=== PATIENT | male | born 1965 | race Two or more races ===

== ENCOUNTER 2023-07-18 02:55 | Inpatient (IN) | payer MEDICARE, OTHER ==
[~2023-07-18] VITALS: Ht 182.9 cm; Wt 105.7 kg
[2023-07-18 03:27] LABS: BASOPHILS # (AUTO) 0.1 K/uL (0.0-0.2); BASOPHILS % (AUTO) 0.7 % (0.0-2.0); EOSINOPHILS # (AUTO) 0.1 K/uL (0.0-0.7); EOSINOPHILS % (AUTO) 1.3 % (0.0-6.0); HEMATOCRIT 43 % (39-51); HEMOGLOBIN 14.6 g/dL (13.5-17.5); LYMPHOCYTES # (AUTO) 0.7 K/uL (0.8-4.8); LYMPHOCYTES % (AUTO) 6.3 % (20.0-44.0); MEAN CORPUSCULAR HEMOGLOBIN 31 PG (26.0-33.0); MEAN CORPUSCULAR HGB CONC 34 g/dl (31.0-36.0); MEAN CORPUSCULAR VOLUME 93 fL (80-96); MONOCYTES # (AUTO) 0.5 K/uL (0.1-1.30); MONOCYTES % (AUTO) 4.5 % (2.0-12.0); NEUTROPHILS # (AUTO) 9.9 K/uL (1.8-8.9); NEUTROPHILS % (AUTO) 87.2 % (43.0-81.0); PLATELET COUNT (AUTO) 215 K/uL (150-450); RED BLOOD CELL COUNT(AUTO) 4.66 MIL/uL (4.5-6.0); RED CELL DISTRIBUTION WIDTH 13.3 % (11.5-15.0); WHITE BLOOD COUNT (AUTO) 11.3 K/uL (4.3-11.0)
[2023-07-18 03:34] LABS: CARBON DIOXIDE 27 mmol/L (21-32); CHLORIDE 102 mmol/L (98-107); CREATININE 1.6 mg/dL (0.6-1.3); GLUCOSE 132 mg/dL (74-106); POTASSIUM 3.5 mmol/L (3.5-5.1); SODIUM SERUM 136 mmol/L (136-145); UREA NITROGEN, BLOOD 10 mg/dL (7-18)
[2023-07-18] MEDS ORDERED: ENOXAPARIN SODIUM 100 MG/ML DISP.SYRIN SQ ONE ×2 (03:59→04:00)
[2023-07-18] MEDS ORDERED: MAGNESIUM HYDROXIDE 30 ML UDC PO PRN (04:30)
[2023-07-18] MEDS ORDERED: ACETAMINOPHEN 325 MG TABLET PO PRN (04:30)
[2023-07-18] MEDS ORDERED: Z GUARD REMEDY 4 OZ OINT TP PRN (04:30)
[2023-07-18] MEDS ORDERED: MORPHINE SULFATE INJ 2 MG/ML DISP.SYRIN IV PRN (04:30)
[2023-07-18] MEDS ORDERED: NITROGLYCERIN PACKET 1 GM PACKET ONE (05:50)
[2023-07-18] MEDS: NITROGLYCERIN PACKET 1 GM PACKET TOP SCH ×2 (06:00→16:54)
[2023-07-18] MEDS ORDERED: PANTOPRAZOLE 40 MG TABLET.DR PO ONE (08:24)
[2023-07-18] MEDS ORDERED: METOPROLOL TARTRATE 25 MG TABLET ONE (08:24)
[2023-07-18] MEDS: PANTOPRAZOLE 40 MG TABLET.DR PO SCH (08:24)
[2023-07-18] MEDS: METOPROLOL TARTRATE 25 MG TABLET PO SCH ×2 (08:27→21:28)
[2023-07-18] MEDS ORDERED: LITH300T PO (08:39)
[2023-07-18] MEDS ORDERED: CLON0.5T PO (08:39)
[2023-07-18] MEDS ORDERED: QUET25TA PO (08:39)
[2023-07-18] MEDS ORDERED: TAMS-12 PO (08:39)
[2023-07-18] MEDS ORDERED: DULO60CA45 PO (08:39)
[2023-07-18] MEDS ORDERED: IV NS 0.9% 1,000 ML BAG IV PRN (10:00)
[2023-07-18] MEDS ORDERED: QUETIAPINE FUMARATE 25 MG TABLET PO PRN (10:00)
[2023-07-18] MEDS: IV NS 0.9% 1,000 ML IV PRN (11:54)
[2023-07-18 12:00] VITALS: BP 151/108; TEMP 98.2; O2SAT 99
[2023-07-18 16:39] VITALS: BP 158/98; TEMP 98.1; O2SAT 98
[2023-07-18 20:30] LABS: PARTIAL THROMBOPLASTIN TIME 28.6 SEC (24.3-34.3); PROTHROMBIN TIME 10.6 SECS (9.2-11.1)
[2023-07-18] MEDS ORDERED: ENOXAPARIN SODIUM 100 MG/ML DISP.SYRIN SQ SCH (21:00)
[2023-07-18] MEDS: ATORVASTATIN 40 MG TABLET PO SCH (21:28)
[2023-07-18 22:00] VITALS: BP 164/112; TEMP 98.2; O2SAT 97
[2023-07-18] MEDS ORDERED: LITHIUM CARBONATE (300 MG CAP) 300 MG CAPSULE PO ONE (22:00)
[2023-07-18] MEDS ORDERED: DULOXETINE HCL 20 MG CAPSULE.DR PO ONE (22:00)
[2023-07-19] VITALS (18 sets, daily range): BP systolic 124–171; BP diastolic 91–117; TEMP 97.5–98.3; O2SAT 95–100
[2023-07-19] MEDS: clonazePAM 0.5 MG TABLET PO PRN ×2 (01:38→21:48)
[2023-07-19] MEDS: IV NS 0.9% 1,000 ML IV PRN (01:38)
[2023-07-19 04:44] LABS: BASOPHILS % (AUTO) 0.1 % (0.0-2.0); EOSINOPHILS # (AUTO) 0.1 K/uL (0.0-0.7); EOSINOPHILS % (AUTO) 0.6 % (0.0-6.0); HEMATOCRIT 45 % (39-51); HEMOGLOBIN 15.4 g/dL (13.5-17.5); LYMPHOCYTES # (AUTO) 1.6 K/uL (0.8-4.8); LYMPHOCYTES % (AUTO) 13.3 % (20.0-44.0); MEAN CORPUSCULAR HEMOGLOBIN 32 PG (26.0-33.0); MEAN CORPUSCULAR HGB CONC 34 g/dl (31.0-36.0); MEAN CORPUSCULAR VOLUME 92 fL (80-96); MONOCYTES % (AUTO) 8.5 % (2.0-12.0); NEUTROPHILS # (AUTO) 9.4 K/uL (1.8-8.9); NEUTROPHILS % (AUTO) 77.5 % (43.0-81.0); PLATELET COUNT (AUTO) 236 K/uL (150-450); RED BLOOD CELL COUNT(AUTO) 4.87 MIL/uL (4.5-6.0); RED CELL DISTRIBUTION WIDTH 13.3 % (11.5-15.0); WHITE BLOOD COUNT (AUTO) 12.1 K/uL (4.3-11.0)
[2023-07-19] MEDS: NITROGLYCERIN PACKET 1 GM PACKET TOP SCH ×2 (04:47→16:35)
[2023-07-19 04:54] LABS: CALCIUM, SERUM 9.4 mg/dL (8.5-10.1); CREATININE 1.3 mg/dL (0.6-1.3); MAGNESIUM 2.3 mg/dL (1.8-2.4); PHOSPHORUS 2.8 mg/dL (2.5-4.9); POTASSIUM 4.1 mmol/L (3.5-5.1)
[2023-07-19] MEDS ORDERED: hydrALAZINE HCL IV 20 MG VIAL IV PRN (05:00)
[2023-07-19 05:10] LABS: PARTIAL THROMBOPLASTIN TIME 28.7 SEC (24.3-34.3); PROTHROMBIN TIME 10.6 SECS (9.2-11.1)
[2023-07-19] MEDS: PANTOPRAZOLE 40 MG TABLET.DR PO SCH (07:30)
[2023-07-19] MEDS: ONDANSETRON HCL/PF 4 MG/2 ML VIAL IVP PRN ×2 (08:45→14:27)
[2023-07-19] MEDS: LITHIUM CARBONATE (300 MG CAP) 300 MG CAPSULE PO SCH ×2 (09:00→22:32)
[2023-07-19] MEDS: METOPROLOL TARTRATE 25 MG TABLET PO SCH ×2 (09:00→20:19)
[2023-07-19] MEDS ORDERED: ASPIRIN EC 81 MG TABLET.DR PO SCH (09:00)
[2023-07-19] MEDS: ASPIRIN EC 81 MG TABLET.DR PO SCH (09:00)
[2023-07-19] MEDS ORDERED: LORAZEPAM INJ 2 MG/ML VIAL IV PRN (09:00)
[2023-07-19] MEDS: DULOXETINE HCL 30 MG CAPSULE.DR PO SCH (09:00)
[2023-07-19] MEDS: TAMSULOSIN 0.4 MG CAP.SR.24H PO SCH (09:00)
[2023-07-19] MEDS ORDERED: IV NS 0.9% 1,000 ML ONE (11:08)
[2023-07-19] MEDS ORDERED: LIDOCAINE HCL/MPF 1% 30 ML VIAL IJ ONE (11:08)
[2023-07-19] MEDS ORDERED: NITROGLYCERIN IN 5 % DEXTROSE 250 ML IV ONE (11:08)
[2023-07-19] MEDS ORDERED: IODIXANOL 150 ML IV ONE (11:08)
[2023-07-19] MEDS ORDERED: IV SET PRIMARY PUMP SET 1 EA INFUS.SET MC ONE (11:09)
[2023-07-19] MEDS ORDERED: FENTANYL PF 100MCG/2ML AMPUL ONE (12:25)
[2023-07-19] MEDS ORDERED: MIDAZOLAM HCL 2 MG/2ML VIAL ONE (12:25)
[2023-07-19] MEDS ORDERED: HEPARIN SODIUM, PORCINE 5000 UNITS/1 ML VIAL ONE (12:32)
[2023-07-19] MEDS ORDERED: HEPARIN SODIUM, PORCINE 1,000 UNIT/ML VIAL ONE (12:32)
[2023-07-19] MEDS ORDERED: IODIXANOL 320MG/ML 50 ML IV ONE (12:33)
[2023-07-19] MEDS ORDERED: TICAGRELOR 90 MG TABLET PO ONE (12:48)
[2023-07-19] MEDS: TICAGRELOR 90 MG TABLET PO SCH (16:35)
[2023-07-19] MEDS ORDERED: TICAGRELOR 90 MG TABLET PO SCH (17:00)
[2023-07-19] MEDS ORDERED: ENOXAPARIN SODIUM 100 MG/ML DISP.SYRIN SQ SCH (18:30)
[2023-07-19] MEDS: ATORVASTATIN 40 MG TABLET PO SCH (21:05)
[2023-07-19] MEDS ORDERED: DULOXETINE HCL 30 MG CAPSULE.DR PO ONE (21:40)
[2023-07-20] VITALS: BP 123/91; TEMP 98.2; O2SAT 100
[2023-07-20] MEDS: NITROGLYCERIN PACKET 1 GM PACKET TOP SCH (04:46)
[2023-07-20 06:49] LABS: EOSINOPHILS % (AUTO) 0.3 % (0.0-6.0); HEMATOCRIT 44 % (39-51); LYMPHOCYTES # (AUTO) 0.9 K/uL (0.8-4.8); LYMPHOCYTES % (AUTO) 6.9 % (20.0-44.0); MEAN CORPUSCULAR HEMOGLOBIN 32 PG (26.0-33.0); MEAN CORPUSCULAR HGB CONC 34 g/dl (31.0-36.0); MEAN CORPUSCULAR VOLUME 92 fL (80-96); MONOCYTES # (AUTO) 1.1 K/uL (0.1-1.30); MONOCYTES % (AUTO) 8.7 % (2.0-12.0); NEUTROPHILS # (AUTO) 10.6 K/uL (1.8-8.9); NEUTROPHILS % (AUTO) 84.1 % (43.0-81.0); PLATELET COUNT (AUTO) 220 K/uL (150-450); RED BLOOD CELL COUNT(AUTO) 4.76 MIL/uL (4.5-6.0); RED CELL DISTRIBUTION WIDTH 13.1 % (11.5-15.0); WHITE BLOOD COUNT (AUTO) 12.7 K/uL (4.3-11.0)
[2023-07-20 07:08] LABS: CALCIUM, SERUM 9.4 mg/dL (8.5-10.1); CREATININE 1.3 mg/dL (0.6-1.3)
[2023-07-20] MEDS: PANTOPRAZOLE 40 MG TABLET.DR PO SCH (07:39)
[2023-07-20 08:00] VITALS: BP 118/91; TEMP 98; O2SAT 99
[2023-07-20] MEDS: ASPIRIN EC 81 MG TABLET.DR PO SCH (08:34)
[2023-07-20] MEDS: METOPROLOL TARTRATE 25 MG TABLET PO SCH (08:35)
[2023-07-20] MEDS: LITHIUM CARBONATE (300 MG CAP) 300 MG CAPSULE PO SCH ×2 (08:35→08:50)
[2023-07-20] MEDS: TAMSULOSIN 0.4 MG CAP.SR.24H PO SCH (08:35)
[2023-07-20] MEDS: DULOXETINE HCL 30 MG CAPSULE.DR PO SCH ×2 (08:36→08:50)
[2023-07-20] MEDS: TICAGRELOR 90 MG TABLET PO SCH (08:37)
[2023-07-20 11:52] VITALS: BP 128/87; TEMP 98.3; O2SAT 96
[2023-07-20] MEDS ORDERED: ATOR40TA PO (12:43)
[2023-07-20] MEDS ORDERED: PANT40TA2 PO (12:43)
[2023-07-20] MEDS ORDERED: ASPI-992 PO (12:43)
[2023-07-20] MEDS ORDERED: TICA90TA PO (12:43)
[2023-07-20] MEDS ORDERED: METO25TA6 PO (12:43)
== END 2023-07-20 16:35 | disposition home or self-care (01) | DRG 321 ==
LOC: ER 02:57 → TRANSITION 04:08 → TELE 08:33 → ICU 07-19 13:54 → TELE 07-19 22:11
PROVIDERS: ADMIT Nurse Practitioner Acute Care; ATTEND Nurse Practitioner Acute Care
PROC: 4A023N7 Measurement of Cardiac Sampling and Pressure, Left Heart, Percutaneous Approach (ICD-10-PCS; principal; 2023-07-19)
PROC: 027034Z Dilation of Coronary Artery, One Artery with Drug-eluting Intraluminal Device, Percutaneous Approach (ICD-10-PCS; 2023-07-19)
PROC: 02C03ZZ Extirpation of Matter from Coronary Artery, One Artery, Percutaneous Approach (ICD-10-PCS; 2023-07-19)
PROC: B211YZZ Fluoroscopy of Multiple Coronary Arteries using Other Contrast (ICD-10-PCS; 2023-07-19)
DX: I25.10 Atherosclerotic heart disease of native coronary artery without angina pectoris (principal); I21.A1 Myocardial infarction type 2; N17.0 Acute kidney failure with tubular necrosis; F31.9 Bipolar disorder, unspecified; M89.8X9 Other specified disorders of bone, unspecified site; N18.9 Chronic kidney disease, unspecified; F12.90 Cannabis use, unspecified, uncomplicated; Z91.81 History of falling; I12.9 Hypertensive chronic kidney disease with stage 1 through stage 4 chronic kidney disease, or unspecified chronic kidney disease
CPT/HCPCS: 36415; 71045-TC; 76770-TC; 80048-TC; 80061-TC; 83735-TC; 84100-TC; 84484-TC; 85025-TC; 85347; 85610-TC; 85730-TC; 92973-TC; 93307-TC; A4223; C1725; C1769; C1887; C9600; G0378; G0500; J0360; J1644; J1650; J2060; J2250; J2270; J2405; J3010; J3490; J7030; Q9967